=== PATIENT | female | born 1985 | race Caucasian/White ===

== ENCOUNTER → 2019-01-12 | Outpatient (CLI) | payer OTHER ==
--- NOTE | 2019-01-12 13:48 | REP ---
LEFT BREAST SONOGRAPHY: HISTORY: History of transition to pain in the left lateral breast. No comparison breast imaging. SONOGRAPHIC FINDINGS: Focused left breast sonography is performed laterally through the area of symptoms which patient says have resolved in the interval. Heterogeneous fibroglandular background echotexture is seen. No cyst or solid lesion is seen. No acoustic shadowing noted. IMPRESSION: BIRADS category 1 negative focused left breast sonography. No suspicious abnormality. Clinical followup is advised. Electronically Signed by Baldo Bhatia MD 01/12/2019 04:51 P
== END ==
LOC: M RAD 09:03
PROVIDERS: ATTEND Family Medicine
DX: Z12.31 Encounter for screening mammogram for malignant neoplasm of breast (principal)

== ENCOUNTER → 2019-01-24 | Outpatient (CLI) | payer OTHER ==
--- NOTE | 2019-01-24 13:14 | REP ---
Right tibia-fibula two views : There is no fracture or dislocation. Mineralization and joint spaces are normal. There are no calcifications or foreign bodies. Impression: Negative Right tibia-fibula . Electronically Signed by Giovanny Farrell MD 01/24/2019 01:05 P
== END ==
LOC: M WUC 12:18
PROVIDERS: ATTEND Physician Assistant
DX: M79.661 Pain in right lower leg (principal)

== ENCOUNTER → 2019-08-13 | Outpatient (REF) | payer OTHER | LOC: M SFHCLERA 18:54 | PROVIDERS: ATTEND Physician Assistant | DX: J02.9 Acute pharyngitis, unspecified (principal) ==

== ENCOUNTER → 2019-09-06 | Outpatient (CLI) | payer OTHER | LOC: M LABSMTC 12:26 | PROVIDERS: ATTEND Family Medicine | DX: Z11.59 Encounter for screening for other viral diseases (principal); Z20.828 Contact with and (suspected) exposure to other viral communicable diseases ==